=== PATIENT | male | born 1970 | race Caucasian/White ===

== ENCOUNTER 2023-07-12 14:23 | Emergency (ER) | payer SELFPAY ==
[2023-07-12 15:27] VITALS: BP 129/89; PULSE 65
== END 2023-07-12 15:34 | disposition home or self-care (01) ==
LOC: MW.ED 14:23
DX: M79.604 Pain in right leg (principal); Z90.49 Acquired absence of other specified parts of digestive tract; Z88.4 Allergy status to anesthetic agent
CPT/HCPCS: 93971-26-RT; 93971-RT; 99282; 99283

== ENCOUNTER 2024-01-22 13:34 | Emergency (ER) | payer OTHER ==
[2024-01-22 14:34] VITALS: BP 122/89; PULSE 72
== END 2024-01-22 14:32 | disposition home or self-care (01) ==
LOC: MW.ED 13:34
DX: M54.41 Lumbago with sciatica, right side (principal); Z75.8 Other problems related to medical facilities and other health care; Z79.899 Other long term (current) drug therapy; Z86.16 Personal history of COVID-19; Z90.49 Acquired absence of other specified parts of digestive tract
CPT/HCPCS: 99283

== ENCOUNTER 2024-10-12 13:08 | Emergency (ER) | payer OTHER ==
[2024-10-12] MEDS ORDERED: Sodium Chloride 0.9% 10 ML Syringe FLUSH PRN (17:25)
[2024-10-12 17:42] LABS: BASOPHILS ABSOLUTE AUTO 0.07 K/uL (0.00-0.20); BASOPHILS PERCENT AUTO 0.9 % (0.0-1.0); EOSINOPHILS ABSOLUTE AUTO 0.26 K/uL (0.00-0.45); EOSINOPHILS PERCENT AUTO 3.5 % (0.0-6.0); HEMATOCRIT 48.9 % (42.0-52.0); HEMOGLOBIN 16.7 g/dL (14.0-18.0); IMMATURE GRAN ABSOLUTE AUTO 0.06 K/uL (0.00-0.05); IMMATURE GRAN PERCENT AUTO 0.8 % (0.0-0.4); LYMPHOCYTES ABSOLUTE AUTO 1.82 K/uL (1.00-4.80); LYMPHOCYTES PERCENT AUTO 24.3 % (24.0-44.0); MEAN CORPUSCULAR HGB CONC 34.2 g/dL (32.0-36.0); MEAN CORPUSCULAR VOLUME 84.9 fL (83.0-99.0); MEAN PLATELET VOLUME 9.9 fL (9.4-12.4); NEUTROPHILS ABSOLUTE AUTO 4.69 K/uL (1.80-7.70); NEUTROPHILS PERCENT AUTO 62.5 % (41.0-71.0); PLATELET COUNT,PLT 197 K/uL (150-400); RED BLOOD CELL COUNT 5.76 M/uL (4.52-5.90)
[2024-10-12] MEDS: Losartan 25 MG Tab PO ONE (17:43)
[2024-10-12 18:08] LABS: A/G RATIO 0.9 (0.9-1.6); ALBUMIN 3.5 g/dL (3.4-5.0); BILIRUBIN TOTAL 0.7 mg/dL (0.2-1.0); CALCIUM 8.6 mg/dL (8.5-10.1); CARBON DIOXIDE,CO2 25.7 mmol/L (21.0-32.0); EST CRCL DRUG DOSING (CG) 94.84 mL/min; MAGNESIUM 2.3 mg/dL (1.8-2.4); POTASSIUM,K 3.9 mmol/L (3.5-5.1); PROTEIN TOTAL,TP 7.2 g/dL (6.4-8.2)
[2024-10-12] MEDS: Ketorolac 30 MG/ML SDV IVPUSH ONE (18:50)
[2024-10-12 19:37] VITALS: BP 129/101; PULSE 79
[2024-10-13] MEDS ORDERED: Losartan 25 MG Tab PO ONE (17:26)
== END 2024-10-12 19:59 | disposition home or self-care (01) ==
LOC: MW.ED 13:08
DX: I10 Essential (primary) hypertension (principal); Z90.49 Acquired absence of other specified parts of digestive tract; Z79.899 Other long term (current) drug therapy
CPT/HCPCS: 36415; 71045; 80053; 83735; 84484; 85025; 93005; 96374; 99285; A9270; J1885; 93010; 99284